=== PATIENT | male | born 1965 | race Caucasian/White ===

== ENCOUNTER 2017-04-17 13:05 | Emergency (ER) | payer BC, OTHER ==
[~2017-04-17] VITALS: Ht 185.4 cm; Wt 86.4 kg
[2017-04-17] MEDS ORDERED: OXYC-145 PO (13:38)
[2017-04-17] MEDS ORDERED: KETO10TA2 PO (13:38)
[2017-04-17 13:59] VITALS: BP 160/102
== END 2017-04-17 14:02 | disposition home or self-care (01) ==
LOC: ER 13:05
DX: S22.41XA Multiple fractures of ribs, right side, initial encounter for closed fracture (principal); J90 Pleural effusion, not elsewhere classified; W18.39XA Other fall on same level, initial encounter; Y93.89 Activity, other specified; Y92.89 Other specified places as the place of occurrence of the external cause; Y99.8 Other external cause status
CPT/HCPCS: 71100; 99284

== ENCOUNTER 2017-09-12 13:52 | Outpatient (CLI) | payer OTHER ==
[~2017-09-12 13:52] MED LIST: KETO10TA2 PO; OXYC-145 PO
== END 2017-09-12 23:59 | disposition home or self-care (01) ==
LOC: RAD 13:52
PROVIDERS: ATTEND Emergency Medicine
DX: Z11.1 Encounter for screening for respiratory tuberculosis (principal)
CPT/HCPCS: 71045

== ENCOUNTER 2018-01-22 17:40 | Emergency (ER) | payer OTHER ==
[2018-01-22 17:53] VITALS: BP 169/80
== END 2018-01-22 18:51 | disposition home or self-care (01) ==
LOC: EEVIPCON 17:40 → ER 17:40
DX: E10.649 Type 1 diabetes mellitus with hypoglycemia without coma (principal); R41.82 Altered mental status, unspecified; F17.200 Nicotine dependence, unspecified, uncomplicated
CPT/HCPCS: 82948; 99284

== ENCOUNTER 2019-08-06 04:09 | Emergency (ER) | payer OTHER ==
[~2019-08-06] VITALS: Ht 190.5 cm; Wt 84.1 kg
[2019-08-06] MEDS ORDERED: ondansetron/PF 4mg/2ml inj IV ONE ×2 (04:15→06:40)
[2019-08-06] MEDS ORDERED: morphine 2 MG/ML inj. syringe IV ONE (04:20)
[2019-08-06] MEDS ORDERED: metoclopramide 5 mg/ml inj IV ONE (04:20)
--- NOTE | 2019-08-06 04:20 | NUR ---
Around this time I was called in for a level1 stroke alert for patient with MITCHELL, nausea/ vomitting and confusion.
[2019-08-06] MEDS ORDERED: morphine 4 MG/ML inj SYRINge ONE (04:24)
--- NOTE | 2019-08-06 04:30 | NUR ---
VERBAL ORDERS GIVEN FOR 2MG MORPHINE IV, 25ML D50 X [address] WHITING
[2019-08-06 04:33] LABS: BASOPHILS # (AUTO) 0.1 X10'3 (0-0.2); BASOPHILS % (AUTO) 0.6 % (0-1); EOSINOPHILS # (AUTO) 0.1 X10'3 (0-0.9); EOSINOPHILS % (AUTO) 1.2 % (0-6); HEMATOCRIT 49.6 % (42.0-52.0); HEMOGLOBIN 16.5 g/dl (14.0-17.9); LYMPHOCYTES # (AUTO) 0.9 X10'3 (1.1-4.8); LYMPHOCYTES % (AUTO) 7.8 % (21-51); MEAN CORPUSCULAR HEMOGLOBIN 30.2 PG (27.0-31.0); MEAN CORPUSCULAR HGB CONC 33.3 g/dL (33.0-36.5); MEAN CORPUSCULAR VOLUME 90.8 FL (78-98); MEAN PLATELET VOLUME 7.7 FL (7.4-10.4); MONOCYTES # (AUTO) 0.7 X10'3 (0-0.9); MONOCYTES % (AUTO) 6.6 % (2-12); NEUTROPHILS # (AUTO) 9.1 X10'3 (1.8-7.7); NEUTROPHILS % (AUTO) 83.8 % (42-75); PLATELET COUNT 271 X10'3 (140-440); RED BLOOD COUNT 5.46 X10'6 (4.70-6.10); RED CELL DISTRIBUTION WIDTH 13.3 % (11.5-14.5); WHITE BLOOD COUNT 10.9 X10'3 (4.5-11.0)
[2019-08-06 04:49] LABS: HEMOGLOBIN A1C 7.8 % (4.5-6.2)
[2019-08-06 04:50] LABS: ALANINE AMINOTRANSFERASE 30 U/L (12-78); ALBUMIN 4.2 G/DL (3.4-5.0); ALBUMIN/GLOBULIN RATIO 1.3 (1.1-1.5); ALKALINE PHOSPHATASE 70 IU/L (46-116); ANION GAP 8 (8-16); ASPARTATE AMINO TRANSFERASE 22 U/L (10-37); BILIRUBIN,TOTAL 0.3 MG/DL (0.1-1.0); BLOOD UREA NITROGEN 14 MG/DL (7-18); BUN/CREATININE RATIO 12.8 (5.4-32.0); CALCIUM 8.7 MG/DL (8.5-10.1); CHLORIDE 106 MMOL/L (99-107); CREATININE 1.09 MG/DL (0.60-1.10); GLUCOSE 88 MG/DL (70-104); POTASSIUM 3.9 MMOL/L (3.5-5.1); SODIUM 143 MMOL/L (135-145); TOTAL CARBON DIOXIDE 28.6 MMOL/L (24-32); TOTAL PROTEIN 7.4 G/DL (6.4-8.2); eGFR 70 ML/MIN
[2019-08-06 04:51] LABS: PARTIAL THROMBOPLASTIN TIME 25 SECONDS (22-32)
[2019-08-06] MEDS ORDERED: dextrose 5%-1/2 normal saline 1,000 ML IV ONE (05:01)
[2019-08-06] MEDS ORDERED: normal saline 1000ML IV soln IVB ONE (05:05)
--- NOTE | 2019-08-06 05:07 | NUR ---
Patient is informed of teleneuro consult to be done and he gave verbal consent for this too be done.
--- NOTE | 2019-08-06 05:08 | NUR ---
Around this time the neurologist did a Teleneuro consult.
[2019-08-06 05:17] LABS: TROPONIN I < 0.04 NG/ML (0.0-0.05)
[2019-08-06 05:18] LABS: CLARITY,URINE CLEAR (Clear); COLOR,URINE STRAW (Yellow); GLUCOSE, URINE 500 mg/dl (Neg); KETONES,URINE TRACE mg/dl (Neg); LEUKOCYTE ESTERASE ,URINE NEGATIVE (Neg); NITRITES, URINE NEGATIVE (Neg); OCCULT BLOOD,URINE NEGATIVE (Neg); PROTEIN,URINE NEGATIVE (Neg); UROBILINOGEN,URINE 0.2 E.U/dL (0.2-1.0)
[2019-08-06] MEDS ORDERED: dextrose 50%-water 50ml dispensing syringe IV ONE ×2 (05:25→08:00)
[2019-08-06] MEDS ORDERED: morphine 4 MG/ML inj SYRINge IV ONE (05:25)
[2019-08-06 05:34] LABS: UA COLLECTION TYPE CLN CATCH MIDSTREAM
[2019-08-06] MEDS ORDERED: fentaNYL/PF 50MCG/1 ML 2ML syringe IV ONE (06:40)
--- NOTE | 2019-08-06 06:55 | NUR ---
Pt glucose reading of 320. Pt self administered 2.5unitis of insulin from insulin pump. MD Wood aware.
--- NOTE | 2019-08-06 07:02 | NUR ---
PT TAKEN TO MRI.
--- NOTE | 2019-08-06 08:01 | NUR ---
Pt back from MRI. Pt hooked up to monitor and positioned for comfort. Pt denies further needs and wanting to rest, call light placed at pt side attached to side rail.
[2019-08-06 08:07] VITALS: BP 155/83
--- NOTE | 2019-08-06 08:37 | NUR ---
Pt glucose 240, pt administered 3 units insulin and currently eating breakfast tray. MD Wood informed of readings and insulin administered.
[2019-08-06] MEDS ORDERED: ketorolac trometh. 30mg/ml inj. IV ONE (09:45)
[2019-08-06] MEDS ORDERED: ONDA4TAB12 PO (10:43)
[2019-08-06] MEDS ORDERED: PROC-8 PO (10:43)
== END 2019-08-06 11:17 | disposition home or self-care (01) ==
LOC: EEVIPCON 04:09 → ER 04:09
DX: E11.649 Type 2 diabetes mellitus with hypoglycemia without coma (principal); G45.4 Transient global amnesia; R41.0 Disorientation, unspecified; R51 Headache; R45.1 Restlessness and agitation; I10 Essential (primary) hypertension
CPT/HCPCS: 36415; 70450; 70496; 70498; 70544; 70551; 71045; 80053; 81003; 82009; 82800; 82948; 83036; 84484; 85025; 85610; 85730; 86885; 86900; 86901; 93005; 96361; 96374; 96375; 99285; J1885; J2270; J2405; J2765; J3010; J7030

== ENCOUNTER 2020-01-20 10:38 | Outpatient (CLI) | payer OTHER ==
[~2020-01-20 10:38] MED LIST changes: +ONDA4TAB12 PO; +PROC-8 PO
== END 2020-01-20 23:59 | disposition home or self-care (01) ==
LOC: RAD 10:38
PROVIDERS: ATTEND Orthopaedic Surgery
DX: M79.672 Pain in left foot (principal); S92.592A Other fracture of left lesser toe(s), initial encounter for closed fracture; X58.XXXA Exposure to other specified factors, initial encounter; Y93.89 Activity, other specified; Y92.89 Other specified places as the place of occurrence of the external cause; Y99.8 Other external cause status
CPT/HCPCS: 73630

== ENCOUNTER 2020-03-25 09:58 | Outpatient (CLI) | payer BC ==
[2020-03-25] MEDS ORDERED: iohexol 350MG/ML 100ml bottle IV ONE (10:46)
[2020-03-25 10:55] VITALS: BP 142/85
--- NOTE | 2020-03-25 11:05 | NUR ---
patient given nitroglycerin 0.8mg sublingual per cardiac CTA Protocol
--- NOTE | 2020-03-25 11:15 | NUR ---
Patient VSS no SS of Bradycardia/Hypotension IV removed and discharged
[2020-03-25 11:34] VITALS: BP 133/69
== END 2020-03-25 23:59 | disposition home or self-care (01) ==
LOC: 64 CT 09:58
PROVIDERS: ATTEND Student in an Organized Health Care Education/Training Program
DX: E11.9 Type 2 diabetes mellitus without complications (principal); Z79.4 Long term (current) use of insulin
CPT/HCPCS: Q9967

== ENCOUNTER 2020-07-06 04:55 | Outpatient (CLI) | payer BC ==
[2020-07-06 09:37] LABS: ALANINE AMINOTRANSFERASE 30 U/L (12-78); ALBUMIN 3.7 G/DL (3.4-5.0); ALBUMIN/GLOBULIN RATIO 1.1 (1.1-1.5); ALKALINE PHOSPHATASE 85 IU/L (46-116); ANION GAP 7 (8-16); ASPARTATE AMINO TRANSFERASE 25 U/L (10-37); BILIRUBIN,TOTAL 0.8 MG/DL (0.1-1.0); BLOOD UREA NITROGEN 12 MG/DL (7-18); BUN/CREATININE RATIO 11.3 (5.4-32.0); CALCIUM 9.1 MG/DL (8.5-10.1); CHLORIDE 107 MMOL/L (99-107); CHOL/HDL RATIO 4.3 (0.00-4.99); CHOLESTEROL 164 MG/DL (0-200); CREATININE 1.06 MG/DL (0.60-1.10); GLUCOSE 91 MG/DL (70-104); HDL CHOLESTEROL 38 MG/DL (35-60); LDL CHOLESTEROL 118 MG/DL (50-100); POTASSIUM 4.3 MMOL/L (3.5-5.1); SODIUM 142 MMOL/L (135-145); TOTAL CARBON DIOXIDE 27.7 MMOL/L (24-32); TOTAL PROTEIN 7.2 G/DL (6.4-8.2); TRIGLYCERIDES 64 MG/DL (20-135); eGFR 73 ML/MIN
[2020-07-06 09:48] LABS: HEMOGLOBIN A1C 6.9 % (4.5-6.2)
== END 2020-07-06 23:59 | disposition home or self-care (01) ==
LOC: LAB 04:55
PROVIDERS: ATTEND Specialist
DX: E10.65 Type 1 diabetes mellitus with hyperglycemia (principal)
CPT/HCPCS: 36415; 80053; 80061; 83036; 84443

== ENCOUNTER 2020-08-09 10:33 | Outpatient (CLI) | payer BC | END 2020-08-09 23:59 | disposition home or self-care (01) | LOC: RAD 10:33 | PROVIDERS: ATTEND Family Medicine | DX: M51.27 Other intervertebral disc displacement, lumbosacral region (principal); M54.16 Radiculopathy, lumbar region | CPT/HCPCS: 72148 ==

== ENCOUNTER 2020-09-10 11:30 | Day surgery (SDC) | payer BC ==
[~2020-09-10] VITALS: Ht 185.4 cm; Wt 88.6 kg
[2020-09-10] MEDS ORDERED: MIDAZolam 1 MG/ML 5ML VIAL ONE (11:45)
[2020-09-10] MEDS ORDERED: fentaNYL/PF 50MCG/1 ML 2ML syringe ONE (11:45)
[2020-09-10 11:48] VITALS: BP 152/78
[2020-09-10] MEDS ORDERED: INSU100C10 SQ (11:57)
[2020-09-10 13:00] VITALS: BP 130/83
[2020-09-10 13:09] VITALS: BP 135/82
[2020-09-10 13:19] VITALS: BP 131/72
[2020-09-10 13:29] VITALS: BP 131/77
== END 2020-09-10 14:00 | disposition home or self-care (01) ==
LOC: GI LAB 11:30
PROVIDERS: ATTEND Internal Medicine Gastroenterology
DX: Z12.11 Encounter for screening for malignant neoplasm of colon (principal); K57.30 Diverticulosis of large intestine without perforation or abscess without bleeding; E10.9 Type 1 diabetes mellitus without complications; Z79.4 Long term (current) use of insulin
CPT/HCPCS: 45378; 99152; J2250; J3010; J7040; 99153; A4620

== ENCOUNTER 2020-10-05 08:14 | Outpatient (CLI) | payer BC ==
[~2020-10-05 08:14] MED LIST changes: +INSU100C10 SQ; -KETO10TA2 PO; -ONDA4TAB12 PO; -OXYC-145 PO; -PROC-8 PO
[2020-10-11 13:44] LABS: TESTOSTERONE, FREE, DIRECT 12.8 pg/mL (7.2-24.0)
== END 2020-10-05 23:59 | disposition home or self-care (01) ==
LOC: LAB 08:14
PROVIDERS: ATTEND Specialist
DX: E10.65 Type 1 diabetes mellitus with hyperglycemia (principal); I10 Essential (primary) hypertension
CPT/HCPCS: 36415; 83036; 84402; 84403

== ENCOUNTER 2020-12-07 09:19 | Outpatient (CLI) | payer BC | END 2020-12-07 23:59 | disposition home or self-care (01) | LOC: RAD 09:19 | PROVIDERS: ATTEND Student in an Organized Health Care Education/Training Program | DX: M47.817 Spondylosis without myelopathy or radiculopathy, lumbosacral region (principal); M54.5 Low back pain | CPT/HCPCS: 72114 ==

== ENCOUNTER 2021-07-18 08:57 | Outpatient (CLI) | payer SELFPAY | END 2021-07-18 23:59 | disposition home or self-care (01) | LOC: RAD 08:57 → EEVIPCON 10:00 → RAD 23:59 | PROVIDERS: ATTEND Family Medicine | DX: M47.26 Other spondylosis with radiculopathy, lumbar region (principal); M48.07 Spinal stenosis, lumbosacral region; M51.16 Intervertebral disc disorders with radiculopathy, lumbar region | CPT/HCPCS: 72148 ==

== ENCOUNTER 2022-04-10 18:22 | Emergency (ER) | payer BC, SELFPAY ==
[~2022-04-10] VITALS: Ht 185.4 cm; Wt 190.0 kg
[2022-04-10 18:35] VITALS: BP 134/78
== END 2022-04-10 19:43 | disposition home or self-care (01) ==
LOC: ER 18:23
DX: S13.9XXA Sprain of joints and ligaments of unspecified parts of neck, initial encounter (principal); E11.9 Type 2 diabetes mellitus without complications; Z98.890 Other specified postprocedural states; Z72.89 Other problems related to lifestyle; Z79.4 Long term (current) use of insulin; W19.XXXA Unspecified fall, initial encounter; Y93.89 Activity, other specified; Y92.89 Other specified places as the place of occurrence of the external cause; Y99.8 Other external cause status
CPT/HCPCS: 72125; 99284

== ENCOUNTER 2022-07-10 13:55 | Outpatient (CLI) | payer BC | END 2022-07-10 23:59 | disposition home or self-care (01) | LOC: RAD 13:55 | PROVIDERS: ATTEND Family Medicine | DX: S46.811A Strain of other muscles, fascia and tendons at shoulder and upper arm level, right arm, initial encounter (principal); M19.011 Primary osteoarthritis, right shoulder; M67.813 Other specified disorders of tendon, right shoulder; M25.711 Osteophyte, right shoulder; R60.9 Edema, unspecified; M25.511 Pain in right shoulder; M25.611 Stiffness of right shoulder, not elsewhere classified; X58.XXXA Exposure to other specified factors, initial encounter; Y93.89 Activity, other specified; Y92.89 Other specified places as the place of occurrence of the external cause; Y99.8 Other external cause status | CPT/HCPCS: 73221 ==

== ENCOUNTER 2023-11-28 09:58 | Emergency (ER) | payer BC ==
[~2023-11-28] VITALS: Ht 185.4 cm; Wt 93.2 kg
[2023-11-28 10:01] VITALS: TEMP 98.2
[2023-11-28 10:31] LABS: BASOPHILS % (AUTO) 0.5 % (0-1); EOSINOPHILS # (AUTO) 0.3 X10'3 (0-0.9); HEMOGLOBIN 17.7 g/dl (14.0-17.9); LYMPHOCYTES # (AUTO) 1.6 X10'3 (1.1-4.8); MEAN CORPUSCULAR HEMOGLOBIN 29.8 PG (27.0-31.0); MEAN CORPUSCULAR HGB CONC 33.4 g/dL (33.0-36.5); MEAN CORPUSCULAR VOLUME 89.2 FL (78-98); MEAN PLATELET VOLUME 7.6 FL (7.4-10.4); MONOCYTES % (AUTO) 12.8 % (2-12); NEUTROPHILS # (AUTO) 4.8 X10'3 (1.8-7.7); NEUTROPHILS % (AUTO) 61.7 % (42-75); PLATELET COUNT 252 X10'3 (140-440); RED BLOOD COUNT 5.94 X10'6 (4.70-6.10); RED CELL DISTRIBUTION WIDTH 14.1 % (11.5-14.5); WHITE BLOOD COUNT 7.8 X10'3 (4.5-11.0)
[2023-11-28] MEDS ORDERED: iohexol 350MG/ML 100ml bottle IV ONE (10:37)
[2023-11-28 11:35] LABS: MAGNESIUM 1.8 MG/DL (1.5-2.4)
[2023-11-28 11:36] LABS: ALBUMIN 3.6 G/DL (3.4-5.0); ANION GAP 7 (8-16); BLOOD UREA NITROGEN 17 MG/DL (7-18); BUN/CREATININE RATIO 15.5 (10.0-20.0); C-REACTIVE PROTEIN < 0.05 MG/DL (0.0-0.5); CHLORIDE 104 MMOL/L (99-107); GLUCOSE 118 MG/DL (70-104); POTASSIUM 4.4 MMOL/L (3.5-5.1); SODIUM 135 MMOL/L (135-145); TOTAL CARBON DIOXIDE 23.8 MMOL/L (24-32); eCRCL 83 ML/MIN; eGFR 69 ML/MIN
[2023-11-28] MEDS: normal saline 1000ML IV soln IVB ONE (11:50)
[2023-11-28 12:28] LABS: BILIRUBIN,URINE NEGATIVE (Neg); CLARITY,URINE CLEAR (Clear); COLOR,URINE YELLOW (Yellow); GLUCOSE, URINE >=1000 mg/dl (Neg); KETONES,URINE NEGATIVE (Neg); LEUKOCYTE ESTERASE ,URINE NEGATIVE (Neg); NITRITES, URINE NEGATIVE (Neg); OCCULT BLOOD,URINE NEGATIVE (Neg); PROTEIN,URINE NEGATIVE (Neg); UROBILINOGEN,URINE 0.2 E.U/dL (0.2-1.0)
[2023-11-28 12:32] LABS: UA COLLECTION TYPE VOIDED
[2023-11-28 12:36] LABS: BACTERIA,URINE NONE SEEN /HPF (Neg); MUCUS STRANDS NONE SEEN /LPF (Neg); RBC,URINE NONE SEEN /HPF (0-2); SQUAMOUS EPITHELIAL CELL,UR FEW /LPF (FEW); WBC,URINE NONE SEEN /HPF (0-4)
[2023-11-28 14:34] VITALS: BP 155/84; PULSE 66; RESP 18; O2SAT 99
== END 2023-11-28 14:36 | disposition home or self-care (01) ==
LOC: EEVIPCON 09:59 → ER 09:59
DX: R42 Dizziness and giddiness (principal); M54.2 Cervicalgia; R51.9 Headache, unspecified; R25.1 Tremor, unspecified; E11.9 Type 2 diabetes mellitus without complications; I10 Essential (primary) hypertension; Z79.4 Long term (current) use of insulin; Z72.89 Other problems related to lifestyle; Z98.890 Other specified postprocedural states
CPT/HCPCS: 36415; 70450; 70496; 70498; 70551; 80048; 81001; 83735; 84100; 84145; 85025; 86140; 96360; 99285; J7030; Q9967